=== PATIENT | male | born 1965 | race African-American/Black ===

== ENCOUNTER 2025-02-19 02:03 | Emergency (ER) | payer MEDICARE, MEDICAID ==
[~2025-02-19] VITALS: Ht 185.4 cm; Wt 105.4 kg
[2025-02-19 03:26] LABS: BASOPHILS % 0.7 % (0.0-2.0); EOSINOPHILS % 2.1 % (0.0-5.0); HEMATOCRIT. 45.5 % (42.0-52.0); HEMOGLOBIN. 15.1 g/dL (14.0-18.0); LYMPHOCYTES % 51.8 % (20.0-50.0); MEAN PLATELET VOLUME 8.6 fl (7.4-10.4); MONOCYTES % 8.2 % (2.0-8.0); NEUTROPHILS % 37.2 % (40.0-76.0); PLATELET 232 x1000/uL (130-400); RED BLOOD CELL COUNT 5.41 mill/uL (4.7-6.1); RED CELL DISTRIBUTION WIDTH 15.0 % (11.6-14.6)
[2025-02-19 03:39] LABS: CREATININE 1.7 mg/dL (0.6-1.3); UREA NITROGEN BLOOD 19.0 mg/dL (9-23)
[2025-02-19] MEDS: HYDRALAZINE 20MG/ML VIAL IV NR (04:01)
[2025-02-19] MEDS: MORPHINE SULFATE 4 MG/ML INJ (FOR IV/IM USE) IV NR (04:01)
[2025-02-19 04:05] LABS: CLARITY URINE CLEAR (CLEAR); COLOR URINE YELLOW (YELLOW); SPECIFIC GRAVITY URINE 1.014 (1.005-1.030)
[2025-02-19 04:06] LABS: GLUCOSE URINE NEGATIVE (NEGATIVE); KETONES URINE NEGATIVE (NEGATIVE); NITRITE URINE NEGATIVE (NEGATIVE); OCCULT BLOOD URINE NEGATIVE (NEGATIVE); PH URINE 5.5 (4.5-8.0); PROTEIN URINE 2+ (NEGATIVE); UROBILINOGEN URINE 1.0 E.U./dL (0.2-1.0)
[2025-02-19 04:07] LABS: LEUKOCYTE ESTERASE URINE NEGATIVE (NEGATIVE)
[2025-02-19 05:02] LABS: SQUAMOUS EPITHELIAL CELL URINE FEW /lpf (RARE/1+)
[2025-02-19 05:05] LABS: BACTERIA URINE NONE SEEN; RBC URINE NONE SEEN /hpf (0-2); WBC URINE 0-2 /hpf (0-2)
[2025-02-19] MEDS ORDERED: POLY119P2 MT (05:23)
[2025-02-19] MEDS ORDERED: ACET-2708 MT (05:23)
[2025-02-19] MEDS: NA PHOS,M-B/NA PHOS,DI-BA ENEMA 118ML PR ONE (06:02)
[2025-02-19 06:55] VITALS: BP 160/95; PULSE 83; RESP 16; TEMP 36.9; O2SAT 100
== END 2025-02-19 07:00 | disposition home or self-care (01) ==
LOC: ER 02:03
DX: K59.00 Constipation, unspecified (principal); Z79.899 Other long term (current) drug therapy
CPT/HCPCS: 99285; 74176; 96374; 96375; 80048; 81003; 85025; 36415; 74018; 93005; J0360; J2270

== ENCOUNTER 2025-03-03 10:04 | Emergency (ER) | payer MEDICARE, MEDICAID ==
[~2025-03-03] VITALS: Ht 185.4 cm; Wt 98.0 kg
[~2025-03-03 10:04] MED LIST: ACET-2708 MT; POLY119P2 MT
[2025-03-03 10:25] VITALS: O2SAT 100
[2025-03-03 10:59] LABS: BASOPHILS % 0.8 % (0.0-2.0); EOSINOPHILS % 2.0 % (0.0-5.0); HEMATOCRIT. 47.2 % (42.0-52.0); HEMOGLOBIN. 15.5 g/dL (14.0-18.0); LYMPHOCYTES % 45.7 % (20.0-50.0); MEAN PLATELET VOLUME 8.5 fl (7.4-10.4); MONOCYTES % 7.0 % (2.0-8.0); NEUTROPHILS % 44.5 % (40.0-76.0); PLATELET 241 x1000/uL (130-400); RED BLOOD CELL COUNT 5.55 mill/uL (4.7-6.1); RED CELL DISTRIBUTION WIDTH 15.1 % (11.6-14.6)
[2025-03-03 11:10] LABS: CREATININE 1.5 mg/dL (0.6-1.3)
[2025-03-03 11:11] LABS: UREA NITROGEN BLOOD 15 mg/dL (9-23)
[2025-03-03 11:12] LABS: ASPARTATE AMINOTRANSFERASE 22 IU/L (<34)
[2025-03-03 11:13] LABS: BILIRUBIN DIRECT 0.2 mg/dL (<=3.0); BILIRUBIN TOTAL 0.6 mg/dL (0.1-1.0); PROTEIN TOTAL 6.7 g/dL (6.0-8.3)
[2025-03-03] MEDS: NA PHOS,M-B/NA PHOS,DI-BA ENEMA 118ML PR ONE (11:15)
[2025-03-03 11:42] LABS: CLARITY URINE CLEAR (CLEAR); COLOR URINE YELLOW (YELLOW); PH URINE 5.0 (4.5-8.0); PROTEIN URINE TRACE (NEGATIVE); SPECIFIC GRAVITY URINE 1.021 (1.005-1.030)
[2025-03-03 11:43] LABS: GLUCOSE URINE NEGATIVE (NEGATIVE); KETONES URINE NEGATIVE (NEGATIVE); LEUKOCYTE ESTERASE URINE NEGATIVE (NEGATIVE); NITRITE URINE NEGATIVE (NEGATIVE); OCCULT BLOOD URINE NEGATIVE (NEGATIVE); UROBILINOGEN URINE 1.0 E.U./dL (0.2-1.0)
[2025-03-03 12:27] LABS: RBC URINE NONE SEEN /hpf (0-2); SQUAMOUS EPITHELIAL CELL URINE 1+ /lpf (RARE/1+); WBC URINE 0-2 /hpf (0-2)
[2025-03-03] MEDS ORDERED: NA P230E RC (12:27)
[2025-03-03 12:28] LABS: BACTERIA URINE NONE SEEN
[2025-03-03 13:50] VITALS: BP 144/98; PULSE 97; RESP 12; TEMP 36.7; O2SAT 100
== END 2025-03-03 13:51 | disposition home or self-care (01) ==
LOC: ER 10:04
DX: R10.9 Unspecified abdominal pain (principal); I10 Essential (primary) hypertension
CPT/HCPCS: 36415; 74176; 80048; 80076; 81003; 85025; 93005; 99284